=== PATIENT | female | born 1940 | race Two or more races ===

== ENCOUNTER 2024-03-13 14:55 | Emergency (ER) | payer SELFPAY ==
[2024-03-13 15:10] VITALS: BMI 35.2
[2024-03-13] MEDS ORDERED: LABETALOL HCL 20 MG/4 ML VIAL ONE (15:40)
[2024-03-13 15:59] LABS: BASO % 0.5 % (0-2.0); EOS % 18.5 % (0-4.5); HEMATOCRIT 36.7 % (32.4-45.2); HEMOGLOBIN 12.3 GM/dL (10.7-15.3); LYMPH % 11.2 % (8-40); MCH 31.6 pg (25.7-33.7); MCHC 33.6 g/dl (32.0-36.0); MEAN CELL VOLUME 93.9 fl (80-96); MEAN PLT VOLUME 9.6 fl (7.5-11.1); MONO % 6.3 % (3.8-10.2); NEUT % 63.5 % (42.8-82.8); PLATELET COUNT 204 10^3/uL (134-434); RBC 3.91 M/mm3 (3.60-5.2); RDW 13.5 % (11.6-15.6); WHITE BLOOD COUNT 11.6 K/mm3 (4.0-10.0)
[2024-03-13] MEDS: LABETALOL HCL 5 MG/1 ML (100MG/20 ML VIAL) IVPUSH ONE (16:01)
[2024-03-13 16:07] LABS: INR 1.02 (0.83-1.09); PROTHROMBIN TIME (PATIENT) 11.7 SEC (9.7-13.0)
[2024-03-13 16:10] LABS: ACTIVATED PTT 27.9 SECONDS (25.2-36.5)
[2024-03-13 16:23] LABS: POTASSIUM 5.2 mmol/L (3.5-5.1)
[2024-03-13 16:25] LABS: CALCIUM 9.2 mg/dL (8.5-10.1)
[2024-03-13 16:26] LABS: ALBUMIN 3.8 g/dl (3.4-5.0); BLOOD UREA NITROGEN 25.6 mg/dL (7-18)
[2024-03-13 16:29] LABS: CREATININE 1.6 mg/dL (0.55-1.3)
[2024-03-13 16:31] LABS: BILIRUBIN,TOTAL 0.5 mg/dL (0.2-1)
[2024-03-13 16:34] LABS: N-TERMINAL BNP 85.3 pg/ml (5-450)
[2024-03-13 17:08] VITALS: BP 210/87; PULSE 89; RESP 19; TEMP 98.7
== END 2024-03-13 17:12 | disposition home or self-care (01) ==
LOC: JER 14:55
PROC: 3E033GC Introduction of Other Therapeutic Substance into Peripheral Vein, Percutaneous Approach (ICD-10-PCS; principal; 2024-03-13)
DX: I10 Essential (primary) hypertension (principal); J06.9 Acute upper respiratory infection, unspecified; R79.89 Other specified abnormal findings of blood chemistry; R05.9 Cough, unspecified; R06.09 Other forms of dyspnea; Z20.822 Contact with and (suspected) exposure to COVID-19
CPT/HCPCS: 0241U-QW; 36415; 71045-TC-FY; 80053; 83880; 84484; 85025; 85610; 85730; 86850; 86900; 86901; 93005; 93010; 99285-25